=== PATIENT | male | born 1985 | race Caucasian/White ===

== ENCOUNTER 2016-08-14 02:00 | Emergency (ER) | payer BC, OTHER ==
[~2016-08-14] VITALS: Ht 182.9 cm; Wt 152.5 kg
[~2016-08-14 02:00] MED LIST: ALBU18HF INH; AMOX1TAB10 PO; BACTDS PO; CEPH-443 PO; HYDR-906 PO; IBUP-1542 PO; IBUP800T25 PO; NORCO; TRAM50TA2 PO; TRAMADOL
[2016-08-14 02:02] VITALS: Ht 182.9 cm; Wt 152.5 kg
[2016-08-14] MEDS ORDERED: KETOROLAC 60 MG INJ IM STA (02:31)
[2016-08-14] MEDS ORDERED: IBUP-1542 PO (02:42)
[2016-08-14] MEDS ORDERED: CLIN-73 PO (02:42)
--- NOTE | 2016-08-14 02:47 | ERD ---
ER Documentation Chief Complaint Date/Time DATE: 08/14/16 TIME: 02:44 Chief Complaint toothache HPI 31-year-old male presents here in emergency department for complaints of right upper tooth pain started 3 days ago. Patient describes the pain as throbbing pain, 6/10 scale, is worse upon eating. Patient has a dental filling on the right upper molar area, has never had the time to see the doctor. Patient took some tramadol for pain with mild relief. Patient denies any facial swelling. Patient denies any fever or chills. Patient denies any discharge coming from the area. ROS All systems reviewed and are negative except as per history of present illness. Medications Home Meds Active Scripts Clindamycin Hcl* (Clindamycin Hcl*) 300 Mg Capsule, 300 MG PO TID for 10 Days, CAP Prov:GORDY RICHARDS NP 08/14/16 Ibuprofen* (Motrin*) 600 Mg Tab, 600 MG PO Q6H Y for PAIN AND OR ELEVATED TEMP, #30 TAB Prov:GORDY RICHARDS NP 08/14/16 Tramadol HCl (Tramadol HCl) 50 Mg Tablet, 50 MG PO Q4 Y for PAIN, #15 TAB Prov:ROSALIO JONES PA-C 03/30/16 Hydrocodone/Acetaminophen ([place] 5-325 Tablet) 1 Each Tablet, 1 TAB PO Q6H Y for PAIN, #10 TAB Prov:GORDY RICHARDS NP 03/04/16 Cephalexin* (Keflex*) 500 Mg Capsule, 500 MG PO QID for 10 Days, CAP Prov:GORDY RICHARDS NP 03/04/16 Sulfamethoxazole-Trimethoprim* (Bactrim* DS) 800-160 Mg Tab, 1 TAB PO BID for 10 Days, TAB Prov:GORDY RICHARDS NP 03/04/16 Ibuprofen* (Motrin*) 600 Mg Tab, 600 MG PO Q6H Y for PAIN AND OR ELEVATED TEMP, #30 TAB Prov:GORDY RICHARDS NP 03/04/16 Ibuprofen* (Motrin*) 800 Mg Tab, 800 MG PO Q6, #30 TAB take with food Prov:LAURIE LYNN PA-C 12/25/15 Amoxicillin/Potassium Clav (Amox-Clav 875-125 mg Tablet) 1 Each Tablet, 1 TAB PO BID for 7 Days, TAB Prov:LAURIE LYNNAline WARNER 12/25/15 Reported Medications [Tramadol] No Conflict Check 01/26/12 [[place]] No Conflict Check 01/26/12 Albuterol Sulfate* (Ventolin HFA*) 18 Gm Hfa.aer.ad, 2 PUFF INH PRN 11/20/11 Allergies Allergies: Coded Allergies: codeine (Verified Allergy, Severe, LIP SWELLING AND HIVES, 04/04/14) PMhx/Soc History of Surgery: Yes (HERNIA REPAIR A CHILD.) Anesthesia Reaction: No Hx Neurological Disorder: No Hx Respiratory Disorders: Yes (ASTHMA) Hx Cardiac Disorders: No Hx Psychiatric Problems: No Hx Miscellaneous Medical Probl: Yes (Dental Pain) Hx Alcohol Use: No Hx Substance Use: No Hx Tobacco Use: Yes Smoking Status: Current every day smoker FmHx Family History: No coronary disease, No diabetes, No other Physical Exam Vitals Vital Signs Date Time Temp Pulse Resp B/P Pulse Ox O2 Delivery O2 Flow Rate FiO2 08/14/16 02:02 97.5 88 20 165/83 100 Physical Exam GENERAL: The patient is well developed and appropriate for usual state of health, in no apparent distress.. HEENT: Atraumatic. Ears: Normal tympanic membrane, no erythema or bulging. No ear canal swelling. No ear discharge. Nose: normal nasal turbinates, no erythema or swelling. Normal nasal discharge. Throat: oropharynx clear. No tonsillar swelling or tonsillar exudates. No lymphadenopathy. Noted tooth decay in the right upper molar area with previous filling noted. CHEST: Clear to auscultation bilaterally. There are no rales, wheezes or rhonchi. HEART: Regular rate and rhythm. No murmurs, clicks, rubs or gallops. No S3 or S4. ABDOMEN: Soft, nontender and nondistended. Good bowel sounds. No rebound or guarding. No gross peritonitis. No gross organomegaly or masses. No Bernardo sign or McBurney point tenderness. BACK: No midline or flank tenderness. EXTREMITIES: Equal pulses bilaterally. There is no peripheral clubbing, cyanosis or edema. No focal swelling or erythema. Full range of motion. Grossly neurovascularly intact. NEURO: Alert and oriented. Cranial nerves 2-12 intact. Motor strength in all 4 extremities with 5/5 strength. Sensation grossly intact. Normal speech and gait. SKIN: There is no apparent rash or petechia. The skin is warm and dry. HEMATOLOGIC AND LYMPHATIC: There is no evidence of excessive bruising or lymphedema. No gross cervical, axillary, or inguinal lymphadenopathy. Results 24 hrs Current Medications Medications (Trade) Dose Ordered Sig/Lindsay Route PRN Reason Start Time Stop Time Status Last Admin Dose Admin Ketorolac Tromethamine (Toradol) 60 mg ONCE STAT IM 08/14/16 02:31 08/14/16 02:32 DC 08/14/16 02:36 Patient was given medication for pain here in emergency department, after treatment, patient verbalized feeling much better. Patient's pain is improved. Procedures/MDM Medical decision making: Patient's dental pain nonspecific at this time, possible from tooth decay, and symptoms of dental abscess or cellulitis. No symptoms of sepsis at this time. Patient appears well and is hemodynamically stable. Patient was advised to see dentist for further evaluation and treatment , will be given prescription clindamycin ibuprofen for mild to moderate pain, advised to continue his Crestone for severe pain. Patient was advised to return to emergency department for worsening symptoms. Follow-up with dentist within 1-2 days. Departure Diagnosis: Primary Impression: Pain, dental Condition: Stable Patient Instructions: Dental Pain Additional Instructions: see dentist to help w/ dental problems GORDY RICHARDS NP Aug 14, 2016 02:46
== END 2016-08-14 02:49 | disposition home or self-care (01) ==
LOC: FTE 02:00
DX: K08.89 Other specified disorders of teeth and supporting structures (principal); J45.909 Unspecified asthma, uncomplicated; F17.210 Nicotine dependence, cigarettes, uncomplicated
CPT/HCPCS: 96372; J1885

== ENCOUNTER 2016-10-16 18:23 | Emergency (ER) | payer OTHER ==
[~2016-10-16] VITALS: Wt 147.5 kg
[~2016-10-16 18:23] MED LIST changes: +CLIN-73 PO
[2016-10-16] MEDS ORDERED: IBUP-1542 PO (19:08)
--- NOTE | 2016-10-16 19:36 | ERD ---
ER Documentation Chief Complaint Date/Time DATE: 10/16/16 TIME: 19:24 Chief Complaint Hostetter and Tramadol refill for Chronic back pain HPI Patient is a 31-year-old male with past medical history of herniated disc, chronic pain, presents to the emergency department for medication refill. Patient states he needs a refill of his Hostetter and tramadol. Patient states he has not been able to see his paint tester for refill of his medications.. Patient denies any recent falls or trauma. Patient denies any fevers or chills. ROS All systems reviewed and are negative except as per history of present illness. Medications Home Meds Active Scripts Ibuprofen* (Ibuprofen*) 600 Mg Tablet, 600 MG PO Q6, #30 TAB Prov:CAMRYN LEONARD PA-C 10/16/16 Clindamycin Hcl* (Clindamycin Hcl*) 300 Mg Capsule, 300 MG PO TID for 10 Days, CAP Prov:GORDY RICHARDS NP 08/14/16 Ibuprofen* (Motrin*) 600 Mg Tab, 600 MG PO Q6H Y for PAIN AND OR ELEVATED TEMP, #30 TAB Prov:GORDY RICHARDS NP 08/14/16 Tramadol HCl (Tramadol HCl) 50 Mg Tablet, 50 MG PO Q4 Y for PAIN, #15 TAB Prov:ROSALIO JONES PA-C 03/30/16 Hydrocodone/Acetaminophen ([place] 5-325 Tablet) 1 Each Tablet, 1 TAB PO Q6H Y for PAIN, #10 TAB Prov:GORDY RICHARDS NP 03/04/16 Cephalexin* (Keflex*) 500 Mg Capsule, 500 MG PO QID for 10 Days, CAP Prov:GORDY RICHARDS NP 03/04/16 Sulfamethoxazole-Trimethoprim* (Bactrim* DS) 800-160 Mg Tab, 1 TAB PO BID for 10 Days, TAB Prov:GORDY RICHARDS NP 03/04/16 Ibuprofen* (Motrin*) 600 Mg Tab, 600 MG PO Q6H Y for PAIN AND OR ELEVATED TEMP, #30 TAB Prov:GORDY RICHARDS NP 03/04/16 Ibuprofen* (Motrin*) 800 Mg Tab, 800 MG PO Q6, #30 TAB take with food Prov:LAURIE LYNN Jen WARNER 12/25/15 Amoxicillin/Potassium Clav (Amox-Clav 875-125 mg Tablet) 1 Each Tablet, 1 TAB PO BID for 7 Days, TAB Prov:LAURIE LYNN ALANA 12/25/15 Reported Medications [Tramadol] No Conflict Check 01/26/12 [[place]] No Conflict Check 01/26/12 Albuterol Sulfate* (Ventolin HFA*) 18 Gm Hfa.aer.ad, 2 PUFF INH PRN 11/20/11 Allergies Allergies: Coded Allergies: codeine (Verified Allergy, Severe, LIP SWELLING AND HIVES, 10/16/16) PMhx/Soc History of Surgery: Yes (HERNIA REPAIR A CHILD.) Anesthesia Reaction: No Hx Neurological Disorder: No Hx Respiratory Disorders: Yes (ASTHMA) Hx Cardiac Disorders: No Hx Psychiatric Problems: No Hx Miscellaneous Medical Probl: Yes (CHRONIC BACK PAIN) Hx Alcohol Use: No Hx Substance Use: No Hx Tobacco Use: Yes Smoking Status: Current every day smoker FmHx Family History: No diabetes Physical Exam Vitals Vital Signs Date Time Temp Pulse Resp B/P Pulse Ox O2 Delivery O2 Flow Rate FiO2 10/16/16 18:34 98.4 86 20 119/72 97 Physical Exam GENERAL: Well-developed, well-nourished male. Appears in no acute distress. HEAD: Normocephalic, atraumatic. EYES: Pupils are equally reactive bilaterally. EOMs grossly intact. No conjunctival erythema. ENT: Moist mucous membranes. No uvula deviation. No kissing tonsils. NECK: Supple. No meningismus. Normal range of motion of the neck. LUNG: Clear to auscultation bilaterally. No rhonchi, wheezing, rales or coarse breath sounds. HEART: Regular rate and rhythm. No murmurs, rubs or gallops. BACK: Tender to palpation in the midline lumbar spine and bilateral lumbar paraspinalis muscles. EXTREMITIES: Equal pulses bilaterally. No peripheral clubbing, cyanosis or edema. No unilateral leg swelling. NEUROLOGIC: Alert and oriented. Moving all four extremities without any difficulty. Normal speech. Steady gait. SKIN: Normal color. Warm and dry. No rashes or lesions. Procedures/MDM MEDICAL DECISION MAKING: Patient is a 31-year-old male with a history of chronic pain and herniated disc who presents to the ED for refill of his medication. Patient requesting refill Hostetter and tramadol. Patient denied any recent falls or trauma. Vital signs were reviewed. Patient is afebrile. Patient was not hypoxic. Patient was hemodynamically stable. I had a long discussion with the patient in regards to his chronic pain medication use. CURES report shows that patient last received tramadol 50 mg 30 tabs on 10-03-2016. Patient has had numerous refills of tramadol throughout the past few months. Patient also received 75 tablets of [id number] tabs on 09-02-16, with numerous prescriptions were in the past. I advised patient that he will need to follow-up with his paint tester for further refill of his narcotic medications. I explained to him at this time I am unable to provide him with any refills given that he does have a significant history of narcotic use. Patient was offered tramadol and Hostetter here in the ED however he declined both medications. PRESCRIPTIONS: Ibuprofen No narcotics were given DISCHARGE: At this time, patient is stable for discharge and outpatient management. I have instructed the patient to follow-up with his/her primary care physician in 1-2 days. Patient was advised to follow-up with a chronic paint tester. Numerous referral names were provided to the patient. I have discussed with the patient the possibility of needing to see a specialist for further workup and imaging studies if symptoms persist. I have instructed the patient to promptly return to the ER for any new or worsening symptoms including increased pain, fever, nausea, vomiting, weakness or LOC. The patient and/or family expressed understanding of and agreement with this plan. All questions were answered. Home care instructions were provided. Departure Diagnosis: Primary Impression: Encounter for medication refill Condition: Stable Patient Instructions: Taking Medicine Safely Referrals: JUHI JONES (PCP) Additional Instructions: Unable to provide an refills of narcotic medication at this time. Please follow -up with your primary care physician and/or paint tester for further refills. See additional paint tester names included. Call your primary care doctor TOMORROW for an appointment during the next 1-2 days.See the doctor sooner or return here if your condition worsens before your appointment time. CAMRYN LEONARD PA-C Oct 16, 2016 19:35
== END 2016-10-16 19:35 | disposition home or self-care (01) ==
LOC: FTE 18:23
DX: Z76.0 Encounter for issue of repeat prescription (principal); J45.909 Unspecified asthma, uncomplicated; F17.210 Nicotine dependence, cigarettes, uncomplicated
CPT/HCPCS: 99281

== ENCOUNTER 2016-11-06 05:02 | Emergency (ER) | payer OTHER ==
[~2016-11-06] VITALS: Ht 188 cm; Wt 149.0 kg
[2016-11-06 05:07] VITALS: Ht 188 cm; Wt 149.0 kg
[2016-11-06] MEDS ORDERED: AMOX1TAB10 PO (06:37)
[2016-11-06] MEDS ORDERED: KETO10TA PO (06:37)
[2016-11-06] MEDS ORDERED: KETOROLAC 30 MG INJ IM STA (06:39)
--- NOTE | 2016-11-18 22:59 | ERA ---
ER Documentation Chief Complaint Date/Time DATE: 11/18/16 TIME: 22:54 Chief Complaint mouth pain s/p tooth extraction 2 months HPI Patient is presenting with recent (1 week) dental pain status post tooth extraction 2 months ago. Patient states that the right upper tooth has become tender when putting food. Has not taken any medications to relieve the symptoms. States that there is a hard feeling mass in the area. Denies fever, difficulty breathing, change in voice or swelling of the oral cavity. Has no other complaints and describes no other associated manifestations. ROS All systems reviewed and are negative except as per history of present illness. Medications Home Meds Active Scripts Ketorolac Tromethamine* (Ketorolac Tromethamine*) 10 Mg Tablet, 10 MG PO Q6H Y for PAIN for 4 Days, TAB Prov:RYAN PETERSON PA-C 11/06/16 Amoxicillin/Potassium Clav (Amox-Clav 875-125 mg Tablet) 875-125 mg Tab, 1 TAB PO BID for 7 Days, #14 TAB Prov:RYAN PETERSON PA-C 11/06/16 Ibuprofen* (Ibuprofen*) 600 Mg Tablet, 600 MG PO Q6, #30 TAB Prov:CAMRYN LEONARD PA-C 10/16/16 Clindamycin Hcl* (Clindamycin Hcl*) 300 Mg Capsule, 300 MG PO TID for 10 Days, CAP Prov:GORDY RICHARDS NP 08/14/16 Ibuprofen* (Motrin*) 600 Mg Tab, 600 MG PO Q6H Y for PAIN AND OR ELEVATED TEMP, #30 TAB Prov:GORDY RICHARDS NP 08/14/16 Tramadol HCl (Tramadol HCl) 50 Mg Tablet, 50 MG PO Q4 Y for PAIN, #15 TAB Prov:ROSALIO JONES PA-C 03/30/16 Hydrocodone/Acetaminophen ([place] 5-325 Tablet) 1 Each Tablet, 1 TAB PO Q6H Y for PAIN, #10 TAB Prov:GORDY RICHARDS NP 03/04/16 Cephalexin* (Keflex*) 500 Mg Capsule, 500 MG PO QID for 10 Days, CAP Prov:GORDY RICHARDS NP 03/04/16 Sulfamethoxazole-Trimethoprim* (Bactrim* DS) 800-160 Mg Tab, 1 TAB PO BID for 10 Days, TAB Prov:GORDY RICHARDSAline NURSE EDUCATOR 03/04/16 Ibuprofen* (Motrin*) 600 Mg Tab, 600 MG PO Q6H Y for PAIN AND OR ELEVATED TEMP, #30 TAB Prov:GORDY RICHARDSAline NURSE EDUCATOR 03/04/16 Ibuprofen* (Motrin*) 800 Mg Tab, 800 MG PO Q6, #30 TAB take with food Prov:SAM LYNNANDREW Li PA-C 12/25/15 Amoxicillin/Potassium Clav (Amox-Clav 875-125 mg Tablet) 1 Each Tablet, 1 TAB PO BID for 7 Days, TAB Prov:LAURIE LYNN Jen WARNER 12/25/15 Reported Medications [Tramadol] No Conflict Check 01/26/12 [[place]] No Conflict Check 01/26/12 Albuterol Sulfate* (Ventolin HFA*) 18 Gm Hfa.aer.ad, 2 PUFF INH PRN 11/20/11 Allergies Allergies: Coded Allergies: codeine (Verified Allergy, Severe, LIP SWELLING AND HIVES, 10/16/16) PMhx/Soc History of Surgery: Yes (HERNIA REPAIR A CHILD.) Anesthesia Reaction: No Hx Neurological Disorder: No Hx Respiratory Disorders: Yes (ASTHMA) Hx Cardiac Disorders: No Hx Psychiatric Problems: No Hx Miscellaneous Medical Probl: Yes (CHRONIC BACK PAIN) Hx Alcohol Use: No Hx Substance Use: No Hx Tobacco Use: Yes Smoking Status: Current every day smoker Physical Exam Physical Exam Const: Well-appearing well-developed 31-year-old male Head: Atraumatic Eyes: Normal Conjunctiva ENT: Hard white 2 mm body palpated in the upper right socket for worsen tooth was extracted. Mild to moderate tenderness to palpation. No swelling or erythema visualized. Mucous membranes moist. Normal external ears and nose. Neck: Full range of motion..~ No meningismus. Resp: Clear to auscultation bilaterally Cardio: Regular rate and rhythm, no murmurs Abd: Soft, non tender, non distended. Normal bowel sounds Skin: No petechiae or rashes Back: No midline or flank tenderness Ext: No cyanosis, or edema Neur: Awake and alert Psych: Normal Mood and Affect Results 24 hrs Current Medications Medications (Trade) Dose Ordered Sig/Lindsay Route PRN Reason Start Time Stop Time Status Last Admin Dose Admin Ketorolac Tromethamine (Toradol) 30 mg ONCE STAT IM 11/06/16 06:39 11/06/16 06:41 DC 11/06/16 06:45 Procedures/MDM Patient is presented with a chief complaint of mouth sore as described in history and physical examination. No difficulty breathing, change in voice or discharge noted. Patient's most likely diagnosis at this time is abnormal heart tissue formation and dental pulp versus tooth pain of unknown etiology. Patient received 30 mg of ketorolac IM in the ED with resolution of symptoms. Patient will be prescribed 4 days ketorolac p.o. for outpatient treatment of dental pain. Augmentin has been prescribed for infection prevention. I have recommended that the patient follow-up with washing machine repairer for further evaluation. Patient has verbally responded that he understands his current condition and plan of management. At this time I have little suspicion for any emergent pathologies including ludwigs angina or dental abscess. Departure Diagnosis: Primary Impression: Abnormal hard tissue formation in dental pulp Additional Impression: Tooth pain Condition: Stable Patient Instructions: Dental Pain Additional Instructions: Follow up with your dentist within the next 4-5 days for a more thorough evaluation. Return the the emergency department immediately if symptoms worsen or change. If you have any questions regarding medications, ask your pharmacist or us before you leave. If any adverse reactions occur while taking your medications, discontinue the treatment and return to the emergency department immediately. Take your medications as directed, and complete the entire course of treatment. RYAN PETERSON PA-C Nov 18, 2016 22:59
== END 2016-11-06 07:09 | disposition home or self-care (01) ==
LOC: FTE 05:02
DX: K08.89 Other specified disorders of teeth and supporting structures (principal); J45.909 Unspecified asthma, uncomplicated; F17.210 Nicotine dependence, cigarettes, uncomplicated
CPT/HCPCS: 96372; J1885; Z7502

== ENCOUNTER 2017-04-27 17:05 | Emergency (ER) | payer SELFPAY ==
[~2017-04-27] VITALS: Ht 180.3 cm; Wt 141.3 kg
[~2017-04-27 17:05] MED LIST changes: +KETO10TA PO
[2017-04-27 17:07] VITALS: Ht 180.3 cm; Wt 141.3 kg
== END 2017-04-27 21:11 | disposition left against medical advice (07) ==
LOC: FTE 17:05
DX: Z53.21 Procedure and treatment not carried out due to patient leaving prior to being seen by health care provider (principal)

== ENCOUNTER 2017-11-08 08:04 | Emergency (ER) | END 2017-11-08 08:59 | disposition home or self-care (01) ==